=== PATIENT | female | born 1955 | race Caucasian/White ===

== ENCOUNTER 2016-09-28 13:03 | Outpatient (RCR) | payer OTHER | END 2016-11-13 08:00 | disposition home or self-care (01) | LOC: PT 13:03 | DX: M25.512 Pain in left shoulder (principal); G89.29 Other chronic pain ==

== ENCOUNTER → 2016-11-02 | Outpatient (CLI) | payer OTHER | LOC: RAD 14:41 | DX: M19.012 Primary osteoarthritis, left shoulder (principal); M75.52 Bursitis of left shoulder; M75.92 Shoulder lesion, unspecified, left shoulder ==

== ENCOUNTER → 2016-11-18 | Outpatient (CLI) | payer OTHER | END | disposition home or self-care (01) | LOC: PT 09:53 ==

== ENCOUNTER 2016-12-07 09:14 | Outpatient (RCR) | payer OTHER | END 2017-03-07 | disposition home or self-care (01) | LOC: PT | DX: M75.22 Bicipital tendinitis, left shoulder (principal) ==

== ENCOUNTER → 2017-02-25 | Outpatient (CLI) | payer OTHER | LOC: MAMMO 08:23 | DX: Z12.31 Encounter for screening mammogram for malignant neoplasm of breast (principal) | CPT/HCPCS: G0202 ==

== ENCOUNTER → 2017-09-01 | Outpatient (CLI) | payer OTHER | LOC: RAD 07:32 | DX: H61.892 Other specified disorders of left external ear (principal); H91.22 Sudden idiopathic hearing loss, left ear | CPT/HCPCS: A9585 ==

== ENCOUNTER → 2018-03-01 | Outpatient (CLI) | payer OTHER | LOC: RAD 08:30 → MAMMO 08:30 | DX: Z12.31 Encounter for screening mammogram for malignant neoplasm of breast (principal); Z13.820 Encounter for screening for osteoporosis ==

== ENCOUNTER → 2019-03-02 | Outpatient (CLI) | payer OTHER | LOC: MAMMO 08:30 | DX: Z12.31 Encounter for screening mammogram for malignant neoplasm of breast (principal) ==

== ENCOUNTER → 2019-08-14 | Outpatient (CLI) | payer OTHER | LOC: RAD 08:49 | DX: N28.89 Other specified disorders of kidney and ureter (principal); N32.89 Other specified disorders of bladder; K76.89 Other specified diseases of liver | CPT/HCPCS: Q9967 ==

== ENCOUNTER → 2019-08-17 | Outpatient (CLI) | payer OTHER | LOC: RAD 08:52 | DX: K76.9 Liver disease, unspecified (principal) ==

== ENCOUNTER → 2019-11-21 | Outpatient (CLI) | payer OTHER | LOC: RAD 10:50 | DX: S09.90XA Unspecified injury of head, initial encounter (principal) ==

== ENCOUNTER → 2020-02-19 | Outpatient (CLI) | payer OTHER | LOC: RAD 08:33 | DX: K76.89 Other specified diseases of liver (principal) ==

== ENCOUNTER → 2020-03-05 | Outpatient (CLI) | payer OTHER | LOC: MAMMO 08:23 | DX: Z12.31 Encounter for screening mammogram for malignant neoplasm of breast (principal) ==

== ENCOUNTER → 2021-03-19 | Outpatient (CLI) | payer MEDICARE | LOC: MAMMO 08:57 | DX: Z12.31 Encounter for screening mammogram for malignant neoplasm of breast (principal) ==

== ENCOUNTER → 2021-06-03 | Outpatient (CLI) | payer MEDICARE | LOC: MAMMO 15:07 | DX: Z13.820 Encounter for screening for osteoporosis (principal) ==

== ENCOUNTER → 2022-01-29 | Outpatient (CLI) | payer MEDICARE | LOC: MAMMO 11:58 | DX: N64.4 Mastodynia (principal) ==

== ENCOUNTER 2022-07-29 08:27 | Outpatient (RCR) | payer MEDICARE | END 2022-08-10 | disposition home or self-care (01) | LOC: PT | DX: M54.50 Low back pain, unspecified (principal); G89.29 Other chronic pain ==

== ENCOUNTER 2022-08-12 08:34 | Outpatient (RCR) | payer MEDICARE | END 2022-09-09 16:24 | disposition home or self-care (01) | LOC: PT 08:34 | DX: M54.50 Low back pain, unspecified (principal); G89.29 Other chronic pain; M54.2 Cervicalgia ==

== ENCOUNTER → 2022-11-20 | Outpatient (CLI) | payer MEDICARE | LOC: RAD 07:46 | DX: K76.9 Liver disease, unspecified (principal) ==